=== PATIENT | female | born 1975 | race American Indian/Alaskan Native ===

== ENCOUNTER 2021-07-10 18:37 | Emergency (ER) | payer MEDICAID ==
[2021-07-10] MEDS ORDERED: Ketorolac 30 MG/ML SDV IM STA (21:12)
== END 2021-07-10 21:35 | disposition home or self-care (01) ==
LOC: FB.ED 18:37
DX: S22.42XA Multiple fractures of ribs, left side, initial encounter for closed fracture (principal); W00.9XXA Unspecified fall due to ice and snow, initial encounter
CPT/HCPCS: 71100; 96372; 99283; J1885